=== PATIENT | female | born 1945 | race Caucasian/White ===

== ENCOUNTER 2023-09-22 08:28 | Day surgery (SDC) | payer MEDICARE, OTHER, SELFPAY ==
[2023-09-20 11:40] VITALS: BMI 26.8
[2023-09-22 08:34] VITALS: BP 114/76; PULSE 90; RESP 18; TEMP 36.9; O2SAT 98; BMI 27.2
--- NOTE | 2023-09-22 08:50 | PC.NURSE ---
liquid tannish to light brown no solids results from fleets
--- NOTE | 2023-09-22 08:53 | P.CONAN_ITS ---
[facility] Past Medical History Medical History (Updated 09/20/23 @ 11:58 by Ginger Maynard RN) Macular degeneration History of radiation therapy Non-small cell lung cancer Breast cancer Thyroid cancer CAD (coronary artery disease) Melanoma Elevated cholesterol HTN (hypertension) Barretts esophagus GERD (gastroesophageal reflux disease) Family History Family history of problems with anesthesia: No Surgical History Surgical History (Updated 09/20/23 @ 11:39 by Ginger Maynard RN) History of thoracotomy Hx of breast reconstruction Hx of mastectomy H/O colonoscopy History of esophagogastroduodenoscopy (EGD) History of Problems with Anesthesia: No Social History Social History (Updated 09/20/23 @ 11:39 by Ginger Maynard RN) Patient Tobacco Use Status: Former Tobacco user Tobacco use type: Cigarette Use of substances other than those prescribed or required for medical reasons: No Are you DNR?: No Advance Directives: No Advance Directives Information Provided: Yes Meds Allergies Allergy/AdvReac Type Severity Reaction Status Date / Time No Known Allergies Allergy Verified 09/20/23 11:39 Home Medications ?Medication ?Instructions ?Recorded ?Confirmed ?Last Taken ?Type aspirin 81 mg tablet,delayed 81 mg PO DAILY 09/20/23 09/20/23 09/04/23 History release levothyroxine 100 mcg tablet 100 mcg PO DAILY 09/20/23 09/20/23 Unknown History (Synthroid) omeprazole 20 mg capsule,delayed 20 mg PO DAILY 09/20/23 09/20/23 09/22/23 History release rosuvastatin 20 mg tablet 20 mg PO DAILY 09/20/23 09/20/23 Unknown History Exam Height,Weight and Vital Signs: Height 5 ft 4 in Weight 71.8 kg Last Vital Signs Temp 98.4 F 09/22/23 08:34 Pulse 90 09/22/23 08:34 Resp 18 09/22/23 08:34 BP 114/76 09/22/23 08:34 Pulse Ox 98 09/22/23 08:34 O2 Del Method Room Air 09/22/23 08:34 Airway Mallampati Class: II TM Dist: >3cm Neck ROM: Full Denture: Upper Assessment and Plan Assessment Anesthesia Assessment: Anesthesia Plan Discussed and Chart Reviewed Final Anesthetic Review Family History of Problems with Anesthesia: No History of Problems with Anesthesia: No NPO: Yes ASA Class: II Final Preanesthetic Review: No Changes in Pt Med Stat, Meds/Allgs Chart Reviewed, Consent Obtained/Reviewed and Anes Risks/Benef Reviewed Patient Risk: Intermediate Procedure Risk: Low Anesthetic Plan Anesthetic Plan: TIVA Disposition: Standard PACU
--- NOTE | 2023-09-22 09:30 | MHC.SHP ---
Pre-Procedural Eval Section A - 24 Hr Update-Section A only Date of Service: 09/22/23 Section B - Complete if H&P > 30 days Chief Complaint: Ritter's esophagus without dysplasia Details of Present Illness: see H&P no changes Relevant Family History (Specify if Yes): No Relevant Social History: None Present Medications: see Short Stay Collaborative assessment Medical History: No relevant PMH History of Previous Operations: No relevant previous surgery Allergies: Allergies Allergy/AdvReac Type Severity Reaction Status Date / Time No Known Allergies Allergy Verified 09/20/23 11:39 Review of Systems Sugical H&P ROS: Negative: Constitution, Cardiovascular, Respiratory, Neurological, Psychiatric, Hem-Onc, Allergic/Immunologic, Gastrointestinal, Genitourinary, Musculoskeletal, Integumentary, Endocrine and Eyes/Ears/Nose/Throat Exam Surgical H&P Exam: Normal: HEENT, Normal: Heart, Normal: Lungs, Normal: Extremities, Normal: Abdomen, Normal: Skin and Normal: Neurological Plan Diagnosis/Plan: Unchanged I have reviewed the history and physical and performed a pertinent physical examination on my patient. No changes have occurred unless specified. Time Spent With Patient Time: Total time managing care of this patient today ____ minutes.
[2023-09-22] MEDS: Lactated Ringers 1,000 ML 50 ML IVCONT (09:32)
[2023-09-22 10:28] VITALS: BP 157/86; PULSE 102; RESP 16; TEMP 36.6; O2SAT 98
[2023-09-22 10:43] VITALS: BP 147/91; PULSE 106; RESP 16; O2SAT 98
[2023-09-22 10:55] VITALS: BP 150/87; PULSE 98; RESP 16; TEMP 36.2; O2SAT 97
--- NOTE | 2023-09-22 11:51 | OP_ITS ---
DATE OF SERVICE: 09/22/2023 SURGEON: Usama Winston MD INDICATIONS: 1. Ritter esophagus. 2. Abnormal CT scan of the colon. PREOPERATIVE DIAGNOSIS: POSTOPERATIVE DIAGNOSIS: PROCEDURE PERFORMED: Upper endoscopy with biopsy, colonoscopy to the terminal ileum with snare polypectomy. ESTIMATED BLOOD LOSS: COMPLICATIONS: ANESTHESIA: Monitored anesthesia care. ASSISTANTS: SPECIMENS: DESCRIPTION OF PROCEDURE: A history and physical was performed. The risks and benefits of the procedure were explained to the patient. Informed consent was obtained. The patient was placed in the left lateral decubitus position. The Olympus video gastroscope was introduced into the esophagus, stomach, and duodenum. Examination was performed. The scope was removed. She was repositioned for colonoscopy. A digital rectal exam was performed and was found to be normal. The Olympus pediatric video colonoscope was introduced into the rectum and advanced to the cecum. The cecum was identified by transillumination, palpation, and identification of ileocecal valve. Examination was performed. The scope was removed. She tolerated both procedures well and was returned to the recovery area in stable condition. FINDINGS: Upper endoscopy: 1. Esophagus the esophagus showed an irregular EG junction. There were no raised lesions or ulcerated areas. Biopsies were obtained from the EG junction. 2. Stomach: The stomach showed no evidence of masses or ulcers. Antral biopsies were obtained. 3. Duodenum: The bulb and 2nd portion were normal. Colonoscopy: The terminal ileum was not examined. The visualized colonic mucosa was normal. The quality of the prep was good with some stool coating mucosa, mainly in the right colon and transverse colon. There was no colitis. The mucosa in the sigmoid appeared normal with scattered diverticulosis throughout the sigmoid. Two polyps measuring less than 10 mm were identified at 25 cm from the anal verge and removed using a hot snare. No other polyps were identified. Retroflexed examination showed small to moderate-sized internal hemorrhoids. IMPRESSION: 1. Ritter esophagus. 2. Colon polyps. RECOMMENDATION: Follow up the biopsy results. MD CHAYO Grewal/INGRIS / [id number]
== END 2023-09-22 12:25 | disposition home or self-care (01) ==
PROVIDERS: PCP Internal Medicine; Visit Provider Internal Medicine Gastroenterology
PROC: (CPT 43239; principal; 2023-09-22 09:10)
DX: K22.70 Barrett's esophagus without dysplasia (principal); K21.9 Gastro-esophageal reflux disease without esophagitis; K22.9 Disease of esophagus, unspecified; R93.3 Abnormal findings on diagnostic imaging of other parts of digestive tract; K63.5 Polyp of colon; K57.30 Diverticulosis of large intestine without perforation or abscess without bleeding; K64.8 Other hemorrhoids; Z86.010 Personal history of colon polyps; I10 Essential (primary) hypertension; E78.5 Hyperlipidemia, unspecified; C50.919 Malignant neoplasm of unspecified site of unspecified female breast; C78.00 Secondary malignant neoplasm of unspecified lung; C79.89 Secondary malignant neoplasm of other specified sites; Z92.3 Personal history of irradiation; Z79.02 Long term (current) use of antithrombotics/antiplatelets; Z79.82 Long term (current) use of aspirin; Z87.891 Personal history of nicotine dependence
CPT/HCPCS: 43239; 45385; 88305; 88313; 88342; J1596; J2250; J2704